=== PATIENT | male | born 1940 ===

== ENCOUNTER 2018-07-04 11:21 | Inpatient (IN) | payer MEDICAID, OTHER ==
[2018-07-04] MEDS ORDERED: Sodium Chloride 0.9% 1,000 ML IV STA ×3 (12:55→14:07)
--- NOTE | 2018-07-04 13:09 | ED PDOC ---
HPI: General Adult Time Seen by Provider: 07/04/18 12:48 Chief Complaint (Nursing): Dental Pain Chief Complaint (Provider): left sided tongue swelling and pain History Per: Patient History/Exam Limitations: no limitations Onset/Duration Of Symptoms: Days (x4 months) Current Symptoms Are (Timing): Still Present Additional Complaint(s): Ian Matson is a 78 year old male, with no significant past medical history, who presents to the emergency department complaining of left sided tongue swelling and pain onset for x4 months. Patient states he had fever and chills at home and pain to both sides of neck. He denies any shortness of breath or difficulty swallowing. No further medical complaints. PMD: None provided. Past Medical History Reviewed: Historical Data, Nursing Documentation, Vital Signs Vital Signs: Last Vital Signs Temp 99.6 F 07/04/18 12:22 Pulse 78 07/04/18 12:22 Resp 18 07/04/18 12:22 BP 131/88 07/04/18 12:22 Pulse Ox 98 07/04/18 12:22 - Medical History PMH: No Chronic Diseases - Surgical History Surgical History: No Surg Hx - Family History Family History: States: Unknown Family Hx - Social History Alcohol: None Drugs: Denies - Home Medications Home Medications: Ambulatory Orders Medication Instructions Recorded No Known Home Med 07/04/18 - Allergies Allergies/Adverse Reactions: Allergies Allergy/AdvReac Type Severity Reaction Status Date / Time No Known Allergies Allergy Verified 07/04/18 12:21 Review of Systems ROS Statement: Except As Marked, All Systems Reviewed And Found Negative Constitutional: Positive for: Fever, Chills ENT: Positive for: Other (left sided tongue swelling and pain). Negative for: Throat Swelling (difficulty swallowing) Respiratory: Negative for: Shortness of Breath Musculoskeletal: Positive for: Neck Pain (both sides) Physical Exam - Reviewed Nursing Documentation Reviewed: Yes Vital Signs Reviewed: Yes - Physical Exam Appears: Positive for: No Acute Distress Head Exam: Positive for: ATRAUMATIC, NORMAL INSPECTION, NORMOCEPHALIC Skin: Positive for: Normal Color, Warm, Dry Eye Exam: Positive for: Normal appearance, EOMI, PERRL ENT: Positive for: Other (left side of tongue with a 1cm lesion) Neck: Positive for: Normal (No neck swelling or masses), Painless ROM, Supple Cardiovascular/Chest: Positive for: Regular Rate, Rhythm. Negative for: Murmur Respiratory: Positive for: Normal Breath Sounds. Negative for: Respiratory Distress, Other (stridor) Gastrointestinal/Abdominal: Positive for: Normal Exam, Soft. Negative for: Tenderness, Guarding, Rebound Back: Positive for: Normal Inspection. Negative for: L CVA Tenderness, R CVA Tenderness, Vertebral Tenderness Extremity: Positive for: Normal ROM (upper and lower extremities). Negative for: Deformity, Swelling Neurologic/Psych: Positive for: Alert, Oriented - Laboratory Results Result Diagrams: 07/04/18 13:10 07/04/18 13:10 - ECG O2 Sat by Pulse Oximetry: 98 (RA) Pulse Ox Interpretation: Normal - Progress Re-evaluation Time: 15:00 Condition: Re-examined - Critical Care Total Time (In Min): 30 Documented Critical Care: Time excludes all time spent performint seperately billable procedures Medical Decision Making Medical Decision Making: Time: 12:48 Initial Plan: --VBG Shock Panel --Neck Soft Tissue w/ contrast [CT] --CMP --Urine dipstick --CBC w/ differential --Sodium Chloride 1,000 ml IV 100 mls/hr --Toradol 30 mg IVP --Reevaluation Scribe Attestation: Documented by Varun Vega, acting as a scribe for Nikita Blakely MD. Provider Scribe Attestation: All medical record entries made by the Scribe were at my direction and personally dictated by me. I have reviewed the chart and agree that the record accurately reflects my personal performance of the history, physical exam, medical decision making, and the department course for this patient. I have also personally directed, reviewed, and agree with the discharge instructions and disposition. Disposition - Clinical Impression Clinical Impression: UTI (urinary tract infection), Sepsis - Patient ED Disposition Is Patient to be Admitted: Yes - Disposition Disposition Time: 15:00 Condition: FAIR Forms: [employer]ensor (Wallisian) - Pt Status Changed To: Hospital Disposition Of: Inpatient - Admit Certification Admit to Inpatient:: After my assessment, the patient will require hospitalization for at least two midnights. This is because of the severity of symptoms shown, intensity of services needed, and/or the medical risk in this patient being treated as an outpatient. - POA Present On Arrival: None
[2018-07-04 13:26] LABS: VENOUS BLOOD GAS PCO2 47 mmHg (40-60); VENOUS BLOOD GAS PO2 11 mm/Hg (30-55); VENOUS BLOOD PH 7.38 (7.32-7.43)
[2018-07-04 14:00] LABS: BASO # 0.1 K/uL (0.0-0.2); BASO % 0.2 % (0.0-2.0); HEMOGLOBIN 11.1 g/dL (12.0-18.0); LYMPH # 1.2 K/uL (1.0-4.3); LYMPH % 4.1 % (20.0-40.0); MEAN CORPUSCULAR HEMOGLOBIN 30.5 pg (27.0-31.0); MEAN CORPUSCULAR HGB CONC 31.8 g/dL (33.0-37.0); MEAN PLATELET VOLUME 7.4 fl (7.2-11.7); MONO # 2.9 K/uL (0.0-0.8); MONO % 10.1 % (0.0-10.0); NEUT # 24.4 K/uL (1.8-7.0); NEUT % 85.6 % (50.0-75.0); PLATELET COUNT 224 K/uL (130-400); RBC 3.65 Mil/uL (4.40-5.90); RED CELL DISTRIBUTION WIDTH 14.1 % (11.5-14.5); WHITE BLOOD COUNT 28.5 K/uL (4.8-10.8)
[2018-07-04] MEDS ORDERED: Piperacillin/Tazobact 3.375 GM in Sodium Chloride 0.9% 100 ML IVPB STA (14:08)
[2018-07-04 14:09] LABS: ALB/GLOB RATIO 1.1 (1.0-2.1); ALT/SGPT 32 U/L (21-72); AST/SGOT 38 U/L (17-59); BLOOD UREA NITROGEN 27 mg/dl (9-20); CALCIUM 9.1 mg/dL (8.4-10.2); GFR NON-AFRICAN AMERICAN 58
[2018-07-04 14:25] LABS: BANDS 3 % (0-2); HYPOCHROMIC SLIGHT; LYMPHOCYTE 4 % (20-50); MONOCYTE 8 % (0-10); NEUTROPHIL 85 % (42-75); PLATELET CLUMPS PRESENT; PLATELET ESTIMATE NORMAL (NORMAL); TOTAL CELLS COUNTED 100
--- NOTE | 2018-07-04 14:40 | RAD ---
Date of service: 07/04/2018 HISTORY: Cough. COMPARISON: No prior. FINDINGS: LUNGS: No active pulmonary disease. PLEURA: No significant pleural effusion identified, no pneumothorax apparent. CARDIOVASCULAR: No atherosclerotic calcification present Normal. OSSEOUS STRUCTURES: No significant abnormalities. VISUALIZED UPPER ABDOMEN: Normal. OTHER FINDINGS: None. IMPRESSION: No active disease.
[2018-07-04] MEDS ORDERED: Piperacillin/Tazobact 3.375 gm Inj IVPB ONE (14:46)
[2018-07-04 14:55] LABS: SQUAMOUS EPITHIAL < 1 /hpf (0-5); URINE BACTERIA RARE (<OCC); URINE BILIRUBIN NEGATIVE (NEGATIVE); URINE BLOOD SMALL (NEGATIVE); URINE CLARITY CLOUDY (Clear); URINE COLOR AMBER (YELLOW); URINE GLUCOSE (UA) NEG (Normal); URINE LEUKOCYTE ESTERASE MOD Leu/uL (Negative); URINE PROTEIN 100 mg/dL (NEGATIVE); URINE UROBILINOGEN 0.2-1.0 mg/dL (0.2-1.0)
[2018-07-04] MEDS ORDERED: Sodium Chloride 0.9% 50 ML IV ONE (15:24)
[2018-07-04] MEDS ORDERED: Iohexol 300 100 ML IJ ONE (15:24)
--- NOTE | 2018-07-04 16:08 | CT ---
Date of service: 07/04/2018 PROCEDURE: CT NECK WITH CONTRAST HISTORY: tongue mass COMPARISON: None available. TECHNIQUE: CT of the neck with intravenous contrast. Coronal and sagittal reformats generated. Intravenous contrast dose: Omnipaque 300, 95 cc Radiation dose: Total exam DLP = 234.63 mGy-cm. This CT exam was performed using one or more of the following dose reduction techniques: Automated exposure control, adjustment of the mA and/or kV according to patient size, and/or use of iterative reconstruction technique. FINDINGS: Evaluation of the suprahyoid neck reveals heterogeneous enhancement at the anterior tongue bilaterally, measuring 4.4 x 1.8 cm (transverse by anteroposterior dimensions) suspicious for malignancy though infectious/inflammatory etiology is not completely excluded. Additional suspicious findings are comprised of lymph nodes with lucent core suspicious for necrosis at right submandibular trait triangle lymph node measure 1.9 x 1.4 cm, and anterior left submandibular triangle lymph node measuring 1.2 x 0.7 cm an additional lymph node right level 2A measuring 1.1 x 0.9 cm. There is some heterogeneous enhancement at the tongue base seen primarily in the transaxial images, less apparent in the sagittal reconstruction. MRI of the neck with without contrast can be utilized for greater characterization of the tongue. No additional suspicious lymph nodes appreciated above or below the hyoid bone in the neck. The pharynx, glottis and larynx appear grossly nonfocal including the vocal cords. Visualized upper trachea is unremarkable as well. GLANDS: Parotid and submandibular glands unremarkable. Normal size thyroid gland, without nodule. CERVICAL SPINE: No fracture or focal lesion. VASCULAR STRUCTURES: Unremarkable. 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 Mild lymphadenopathy at the right greater than left suprahyoid neck may indicate the same given suspicion of necrosis within the cores. Heterogeneous density at the posterior tongue/tongue base may be artifactual in the transaxial projection alone. Follow-up MRI with without contrast can better characterize the tongue. Otherwise PET-CT may be helpful. Overall pattern is suspicious for anterior tongue malignancy. 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
--- NOTE | 2018-07-04 16:41 | CP.PCM.HP ---
<Isaiah Banegas - Last Filed: 07/04/18 17:00> History of Present Illness - History of Present Illness History of Present Illness: CC: Mouth/Tongue pain HPI: Pt is a 78 y/o male with no known medical problems who presented to [facility] Ed with complaints of worsening tongue and mouth pain for the past 4 months. Associated symptoms include dysphagia, 14lb weight, loss (in 1 month), and fatigue. IN the last 4 days, he reports having fever and chills but denies n/v, abdominal pain, flank pain, diarrhea, dysuria, headache, neck pain, stiffness, and back pain. He states that he was seen and evaluated at [facility] ED 2 days ago and was told he had a mass on his tongue which he needed a biopsy for to rule out malignancy. However, he did not make appointment at the [facility] oncology center since he had no insurance. He denies cp, sob, cough, le edema. 5 point ROS negative unless otherwise stated in HPI PMHX: denies PSurgHx: wrist fx repair after fall Medications: denies NKDA Family Hx: daughter- HTN Social: Lives with daughter, 45 pack year smoking history (quit 4 years ago), drank heavily in the past but drinks only socially now ED Course: Vitals: T 104F, BP 100/52, HR 85, O2 sat 97% on rm air CBC: 28.5>11.1/35<224 N85, L4.1 M10.1 Bands 3 Lactate 4.4 CMP: 134/4.01/9425/1.2 AST/ALT 38/32 UA: Positive Nitrate, RBC 9H, 20 WBC Soft Tissue Neck CT: 4.4 x 1.8cm mass on anterior tongue w/ mild lymp hadenopathy..findings suspicious for anterior tongue malignancy Interventions: Bcx (2) and Ucx sent Acetaminophen 650mg po x1 Toradol 30mg IVP x1 NS 250ml bolus x2 NS 1L at 100cc/hr Zosyn 3.375 IV x1 Present on Admission - Present on Admission Any Indicators Present on Admission: No Past Patient History - Past Social History Alcohol: None Drugs: Denies - PSYCHIATRIC Hx Substance Use: No Meds Allergies/Adverse Reactions: Allergies Allergy/AdvReac Type Severity Reaction Status Date / Time No Known Allergies Allergy Verified 07/04/18 12:21 Physical Exam - Constitutional Appears: No Acute Distress - Head Exam Head Exam: NORMAL INSPECTION - Eye Exam Eye Exam: Normal appearance, PERRL - ENT Exam ENT Exam: Mucous Membranes Moist Additional comments: Sublingual mass ~1cm appreciable on right side. Tongue Full ROM, non tender, no discharge. Mucosa normal no exudates. Uvula midline. no lymphadenopathy - Neck Exam Neck exam: Positive for: Full Rom. Negative for: Lymphadenopathy, Meningismus, Tenderness - Respiratory Exam Respiratory Exam: Clear to Auscultation Bilateral. absent: Accessory Muscle Use, Rales, Wheezes - Cardiovascular Exam Cardiovascular Exam: REGULAR RHYTHM, +S1, +S2, Systolic Murmur - GI/Abdominal Exam GI & Abdominal Exam: Normal Bowel Sounds, Soft. absent: Tenderness - Extremities Exam Extremities exam: Positive for: normal capillary refill, normal inspection, pedal pulses present. Negative for: pedal edema - Back Exam Back exam: absent: CVA tenderness (L), CVA tenderness (R) - Neurological Exam Neurological exam: Alert, Oriented x3 - Psychiatric Exam Psychiatric exam: Anxious, Normal Mood - Skin Skin Exam: Normal Color Results - Vital Signs Recent Vital Signs: Last Vital Signs Temp 99.2 F 07/04/18 15:07 Pulse 85 07/04/18 15:07 Resp 18 07/04/18 15:07 BP 100/52 L 07/04/18 15:07 Pulse Ox 97 07/04/18 15:07 - Labs Result Diagrams: 07/04/18 13:10 07/04/18 13:10 Labs: Laboratory Results - last 24 hr 07/04/18 07/04/18 07/04/18 13:10 13:10 13:18 WBC 28.5 H RBC 3.65 L Hgb 11.1 L Hct 35.0 MCV 96.0 H MCH 30.5 MCHC 31.8 L RDW 14.1 Plt Count 224 MPV 7.4 Neut % (Auto) 85.6 H Lymph % (Auto) 4.1 L [place] % (Auto) 10.1 H Eos % (Auto) 0.0 Baso % (Auto) 0.2 Neut # (Auto) 24.4 H Lymph # (Auto) 1.2 [place] # (Auto) 2.9 H Eos # (Auto) 0.0 Baso # (Auto) 0.1 Neutrophils % (Manual) 85 H Band Neutrophils % 3 H Lymphocytes % (Manual) 4 L Monocytes % (Manual) 8 Platelet Estimate Normal Plt Clumps, EDTA Present Hypochromasia (manual) Slight pO2 11 L VBG pH 7.38 VBG pCO2 47 VBG HCO3 24.1 VBG Total CO2 29.2 H VBG O2 Sat (Calc) 14.4 L VBG Base Excess 2.0 VBG Potassium 4.7 Glucose 111 H Lactate 4.4 H* FiO2 21.0 Blood Gas Comments Lac=4.4 Crit Value Called To kalani Phillips Crit Value Called By 22 Crit Value Read Back Y Blood Gas Notified Time 1325 Sodium 134 131.0 L Potassium 4.6 Chloride 94 L 94.0 L Carbon Dioxide 25 Anion Gap 20 BUN 27 H Creatinine 1.2 Est GFR ( Amer) > 60 Est GFR (Non-Af Amer) 58 Random Glucose 99 Calcium 9.1 Total Bilirubin 0.9 AST 38 ALT 32 Alkaline Phosphatase 118 Total Protein 7.4 Albumin 4.0 Globulin 3.5 Albumin/Globulin Ratio 1.1 Venous Blood Potassium 4.7 Urine Color Urine Clarity Urine pH Ur Specific [place] Urine Protein Urine Glucose (UA) Urine Ketones Urine Blood Urine Nitrate Urine Bilirubin Urine Urobilinogen Ur Leukocyte Esterase Urine RBC (Auto) Urine Microscopic WBC Ur Squamous Epith Cells Urine Bacteria 07/04/18 14:32 WBC RBC Hgb Hct MCV MCH MCHC RDW Plt Count MPV Neut % (Auto) Lymph % (Auto) [place] % (Auto) Eos % (Auto) Baso % (Auto) Neut # (Auto) Lymph # (Auto) [place] # (Auto) Eos # (Auto) Baso # (Auto) Neutrophils % (Manual) Band Neutrophils % Lymphocytes % (Manual) Monocytes % (Manual) Platelet Estimate Plt Clumps, EDTA Hypochromasia (manual) pO2 VBG pH VBG pCO2 VBG HCO3 VBG Total CO2 VBG O2 Sat (Calc) VBG Base Excess VBG Potassium Glucose Lactate FiO2 Blood Gas Comments Crit Value Called To Crit Value Called By Crit Value Read Back Blood Gas Notified Time Sodium Potassium Chloride Carbon Dioxide Anion Gap BUN Creatinine Est GFR ( Amer) Est GFR (Non-Af Amer) Random Glucose Calcium Total Bilirubin AST ALT Alkaline Phosphatase Total Protein Albumin Globulin Albumin/Globulin Ratio Venous Blood Potassium Urine Color Sirisha Urine Clarity Cloudy Urine pH 7.0 Ur Specific [place] 1.016 Urine Protein 100 Urine Glucose (UA) Neg Urine Ketones Negative Urine Blood Small Urine Nitrate Positive H Urine Bilirubin Negative Urine Urobilinogen 0.2-1.0 Ur Leukocyte Esterase Mod Urine RBC (Auto) 9 H Urine Microscopic WBC 20 H Ur Squamous Epith Cells < 1 Urine Bacteria Rare Assessment & Plan - Assessment and Plan (Free Text) Assessment: Pt is a 78 y/o male with no known medical problems admitted to [facility] for Urosepsis. 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 Sepsis -Febrile 104F, WBC 28, Bands 3, Lactic Acid 4.4 -Likely 2/2 to UTI given U/A + Nitrates and WBC -Cxray no acute findings -Fluid resuscitation: 250cc NS bolus x2 -S/P Zosyn x1 -C/W Rocephin 1gm daily -F/U Bcx and Ucx -Tylenol prn for fevers -F/U CBC and Lactic Acid Tongue Mass -No acute intervention required; pt needs f/u with ENT for biopsy and subsequen tly Oncology -Discuss CT findings with patient and concern for malignancy. Pt is aware and was told in previous institution. -Currently has no plans in place to f/u with Onclogist given his insurance status -Will provide information for [facility] prior to discharge Dysphagia -Dysphagia diet -Swallow screen and evaluation Stable Full Code <Nando Hernández D - Last Filed: 07/04/18 19:14> Results - Vital Signs Recent Vital Signs: Last Vital Signs Temp 99.1 F 07/04/18 19:05 Pulse 78 07/04/18 19:05 Resp 18 07/04/18 19:05 BP 95/48 L 07/04/18 19:05 Pulse Ox 98 07/04/18 19:05 - Labs Result Diagrams: 07/04/18 13:10 07/04/18 13:10 Labs: Laboratory Results - last 24 hr 07/04/18 07/04/18 07/04/18 13:10 13:10 13:18 WBC 28.5 H RBC 3.65 L Hgb 11.1 L Hct 35.0 MCV 96.0 H MCH 30.5 MCHC 31.8 L RDW 14.1 Plt Count 224 MPV 7.4 Neut % (Auto) 85.6 H Lymph % (Auto) 4.1 L [place] % (Auto) 10.1 H Eos % (Auto) 0.0 Baso % (Auto) 0.2 Neut # (Auto) 24.4 H Lymph # (Auto) 1.2 [place] # (Auto) 2.9 H Eos # (Auto) 0.0 Baso # (Auto) 0.1 Neutrophils % (Manual) 85 H Band Neutrophils % 3 H Lymphocytes % (Manual) 4 L Monocytes % (Manual) 8 Platelet Estimate Normal Plt Clumps, EDTA Present Hypochromasia (manual) Slight pO2 11 L VBG pH 7.38 VBG pCO2 47 VBG HCO3 24.1 VBG Total CO2 29.2 H VBG O2 Sat (Calc) 14.4 L VBG Base Excess 2.0 VBG Potassium 4.7 Glucose 111 H Lactate 4.4 H* FiO2 21.0 Blood Gas Comments Lac=4.4 Crit Value Called To kalani Phillips Crit Value Called By 22 Crit Value Read Back Y Blood Gas Notified Time 1325 Sodium 134 131.0 L Potassium 4.6 Chloride 94 L 94.0 L Carbon Dioxide 25 Anion Gap 20 BUN 27 H Creatinine 1.2 Est GFR ( Amer) > 60 Est GFR (Non-Af Amer) 58 Random Glucose 99 Calcium 9.1 Total Bilirubin 0.9 AST 38 ALT 32 Alkaline Phosphatase 118 Total Protein 7.4 Albumin 4.0 Globulin 3.5 Albumin/Globulin Ratio 1.1 Venous Blood Potassium 4.7 Urine Color Urine Clarity Urine pH Ur Specific [place] Urine Protein Urine Glucose (UA) Urine Ketones Urine Blood Urine Nitrate Urine Bilirubin Urine Urobilinogen Ur Leukocyte Esterase Urine RBC (Auto) Urine Microscopic WBC Ur Squamous Epith Cells Urine Bacteria 07/04/18 07/04/18 14:32 16:30 WBC RBC Hgb Hct MCV MCH MCHC RDW Plt Count MPV Neut % (Auto) Lymph % (Auto) [place] % (Auto) Eos % (Auto) Baso % (Auto) Neut # (Auto) Lymph # (Auto) [place] # (Auto) Eos # (Auto) Baso # (Auto) Neutrophils % (Manual) Band Neutrophils % Lymphocytes % (Manual) Monocytes % (Manual) Platelet Estimate Plt Clumps, EDTA Hypochromasia (manual) pO2 35 VBG pH 7.45 H VBG pCO2 36 L VBG HCO3 25.2 VBG Total CO2 26.1 VBG O2 Sat (Calc) 78.0 H VBG Base Excess 1.3 VBG Potassium 4.4 Glucose 126 H Lactate 1.2 FiO2 21.0 Blood Gas Comments Crit Value Called To Crit Value Called By Crit Value Read Back Blood Gas Notified Time Sodium 130.0 L Potassium Chloride 101.0 Carbon Dioxide Anion Gap BUN Creatinine Est GFR ( Amer) Est GFR (Non-Af Amer) Random Glucose Calcium Total Bilirubin AST ALT Alkaline Phosphatase Total Protein Albumin Globulin Albumin/Globulin Ratio Venous Blood Potassium 4.4 Urine Color Sirisha Urine Clarity Cloudy Urine pH 7.0 Ur Specific [place] 1.016 Urine Protein 100 Urine Glucose (UA) Neg Urine Ketones Negative Urine Blood Small Urine Nitrate Positive H Urine Bilirubin Negative Urine Urobilinogen 0.2-1.0 Ur Leukocyte Esterase Mod Urine RBC (Auto) 9 H Urine Microscopic WBC 20 H Ur Squamous Epith Cells < 1 Urine Bacteria Rare Attending/Attestation - Attestation I have personally seen and examined this patient.: Yes I have fully participated in the care of the patient.: Yes I have reviewed all pertinent clinical information: Yes Notes (Text): 07/04/18 19:12 Patient seen and examined with resident. Case discussed and agreed with assessment and plan of management.
[2018-07-04 16:44] LABS: VENOUS BLOOD GAS BASE EXCESS 1.3 mmol/L (0.0-2.0); VENOUS BLOOD GAS PCO2 36 mmHg (40-60); VENOUS BLOOD GAS PO2 35 mm/Hg (30-55); VENOUS BLOOD PH 7.45 (7.32-7.43)
[2018-07-04] MEDS ORDERED: Vancomycin 1 g Inj ONE (17:25)
[2018-07-04] MEDS: Sodium Chloride 0.9% 1,000 ML IV SCH (18:22)
[2018-07-04] MEDS ORDERED: Influenza Vaccine 60 mcg/0.5 mL SYR (4YR UP) IM ONE (20:38)
[2018-07-04] MEDS: Piperacillin/Tazobact 3.375 GM in Sodium Chloride 0.9% 100 ML IVPB SCH (22:12)
[2018-07-05] MEDS: Sodium Chloride 0.9% 1,000 ML IV SCH ×5 (00:48→21:57)
[2018-07-05] MEDS: Piperacillin/Tazobact 3.375 GM in Sodium Chloride 0.9% 100 ML IVPB SCH ×4 (04:08→21:56)
[2018-07-05 05:39] LABS: BASO % 0.2 % (0.0-2.0); HEMOGLOBIN 8.5 g/dL (12.0-18.0); LYMPH # 0.9 K/uL (1.0-4.3); LYMPH % 4.4 % (20.0-40.0); MEAN CELL VOLUME 93.3 fl (80.0-94.0); MEAN CORPUSCULAR HEMOGLOBIN 30.6 pg (27.0-31.0); MEAN CORPUSCULAR HGB CONC 32.8 g/dL (33.0-37.0); MEAN PLATELET VOLUME 7.6 fl (7.2-11.7); MONO # 2.7 K/uL (0.0-0.8); MONO % 12.9 % (0.0-10.0); NEUT # 17.4 K/uL (1.8-7.0); NEUT % 82.5 % (50.0-75.0); RBC 2.76 Mil/uL (4.40-5.90); RED CELL DISTRIBUTION WIDTH 14.2 % (11.5-14.5); WHITE BLOOD COUNT 21.1 K/uL (4.8-10.8)
[2018-07-05 06:02] LABS: BLOOD UREA NITROGEN 24 mg/dl (9-20); CALCIUM 7.7 mg/dL (8.4-10.2); GFR NON-AFRICAN AMERICAN 53
--- NOTE | 2018-07-05 07:51 | CP.PCM.PN ---
<Isaiah Banegas - Last Filed: 07/05/18 10:40> Subjective - Date & Time of Evaluation Date of Evaluation: 07/05/18 Time of Evaluation: 09:00 - Subjective Subjective: Pt seen and examined this morning. Complains of tongue/mouth pain. Tylenol po given by nurse this morning which relieved. Denies fever/chills, dysuria. Tolerating dysphagia diet well. Objective - Vital Signs/Intake and Output Vital Signs (last 24 hours): Temp Pulse Resp BP Pulse Ox 99.5 F 68 18 98/48 L 97 07/05/18 04:44 07/05/18 04:44 07/05/18 04:44 07/05/18 04:44 07/05/18 04:44 - Medications Medications: Current Medications Acetaminophen (Tylenol 325mg Tab) 650 mg PO Q6 PRN PRN Reason: Fever >100.4 F Acetaminophen (Tylenol 325mg Tab) 650 mg PO Q6 PRN PRN Reason: Pain, Mild (1-3) Last Admin: 07/05/18 00:47 Dose: 650 mg Enoxaparin Sodium (Lovenox) 40 mg SC DAILY NIKOLAS; Protocol Sodium Chloride (Sodium Chloride 0.9%) 1,000 mls @ 200 mls/hr IV .Q5H NIKOLAS Stop: 07/05/18 18:18 Last Admin: 07/05/18 05:48 Dose: 200 mls/hr Vancomycin HCl 1 gm/ Sodium (Chloride) 250 mls @ 125 mls/hr IVPB Q12H NIKOLAS; Protocol Last Admin: 07/04/18 20:13 Dose: Not Given Piperacillin Sod/Tazobactam (Sod 3.375 gm/ Sodium Chloride) 100 mls @ 100 mls/hr IVPB Q6 NIKOLAS; Protocol Last Admin: 07/05/18 04:08 Dose: 100 mls/hr Sodium Chloride (Sodium Chloride 0.9%) 500 mls @ 500 mls/hr IV .Q1H ONE Stop: 07/05/18 08:49 Pantoprazole Sodium (Protonix Ec Tab) 40 mg PO DAILY NIKOLAS - Labs Labs: 07/05/18 04:25 07/05/18 04:25 - Constitutional Appears: No Acute Distress - Eye Exam Eye Exam: Normal appearance - ENT Exam ENT Exam: Mucous Membranes Moist Additional comments: Sublingual mass ~1cm appreciable on right side. Tongue Full ROM, non tender, no discharge. Mucosa normal no exudates. Uvula midline. + moderately sized anterior cervical lymphadenopathy - Neck Exam Neck Exam: Lymphadenopathy - Respiratory Exam Respiratory Exam: Clear to Ausculation Bilateral. absent: Rales, Wheezes Assessment and Plan - Assessment and Plan (Free Text) Assessment: Pt is a 78 y/o male with no known medical problems admitted to [facility] for Urosepsis w/ elevated lactic acid 4.4. 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 Currently receiving IV Vanco and Zosyn, pending Ucx. Sepsis -Improved, Afebrile overnight, WBC 21.1, Lactic Acid 1.2 -Febrile 104F, WBC 28, Bands 3, Lactic Acid 4.4 -Likely 2/2 to UTI given U/A + Nitrates and WBC -Cxray no acute findings -Fluid resuscitation: 250cc NS bolus x2 -C/W Vancomysin and Zosyn -F/U Bcx and Ucx -Tylenol prn for fevers Tongue Mass -No acute intervention required; pt needs f/u with ENT for biopsy and s ubsequently Oncology -Discuss CT findings with patient and concern for malignancy. Pt is aware and w as told in previous institution. -Pt strongly encouraged to f/u with ENT and Oncology for biopsy to rule out malignancy Dysphagia -Dysphagia diet -Swallow screen and evaluation pending Stable Full Code <Comfort Caputo - Last Filed: 07/05/18 17:19> Objective - Vital Signs/Intake and Output Vital Signs (last 24 hours): Temp Pulse Resp BP Pulse Ox 98.2 F 78 18 125/70 95 07/05/18 16:27 07/05/18 16:27 07/05/18 16:27 07/05/18 16:27 07/05/18 16:27 - Medications Medications: Current Medications Acetaminophen (Tylenol 325mg Tab) 650 mg PO Q6 PRN PRN Reason: Fever >100.4 F Acetaminophen (Tylenol 325mg Tab) 650 mg PO Q6 PRN PRN Reason: Pain, severe (8-10) Enoxaparin Sodium (Lovenox) 40 mg SC DAILY NIKOLAS; Protocol Last Admin: 07/05/18 09:35 Dose: 40 mg Vancomycin HCl 1 gm/ Sodium (Chloride) 250 mls @ 125 mls/hr IVPB Q12H NIKOLAS; Protocol Last Admin: 07/05/18 09:31 Dose: 125 mls/hr Piperacillin Sod/Tazobactam (Sod 3.375 gm/ Sodium Chloride) 100 mls @ 100 mls/hr IVPB Q6 NIKOLAS; Protocol Last Admin: 07/05/18 16:56 Dose: 100 mls/hr Sodium Chloride (Sodium Chloride 0.9%) 1,000 mls @ 125 mls/hr IV .Q8H NIKOLAS Stop: 07/06/18 12:19 Last Admin: 07/05/18 14:45 Dose: 125 mls/hr Pantoprazole Sodium (Protonix Ec Tab) 40 mg PO DAILY NIKOLAS Last Admin: 07/05/18 09:30 Dose: 40 mg - Labs Labs: 07/05/18 04:25 07/05/18 04:25 Attending/Attestation - Attestation I have personally seen and examined this patient.: Yes I have fully participated in the care of the patient.: Yes I have reviewed all pertinent clinical information, including history, physical exam and plan: Yes Notes (Text): Sepsis ? due to UTI with Gram Negative Rods Bacteremia ( POA) - cont IV Zosyn and Vanco - IVF hydration - ID consult - Echo to eval for vegetation -
[2018-07-05] MEDS: Pantoprazole 40 mg EC Tab PO SCH (09:30)
[2018-07-05] MEDS: Sodium Chloride 0.9% 500 ML IV ONE ×2 (09:32→10:00)
[2018-07-05] MEDS: Enoxaparin 40 mg Syringe SC SCH (09:35)
--- NOTE | 2018-07-05 10:25 | RAD ---
Date of service: 07/05/2018 PROCEDURE: CHEST RADIOGRAPH, 1 VIEW HISTORY: SOB COMPARISON: 07/04/2018 FINDINGS: LUNGS: Minimal subsegmental atelectasis in both lower lobes. No acute infiltrate. PLEURA: Minimal blunting of the right costophrenic angle may reflect very small pleural effusion. No pneumothorax. CARDIOVASCULAR: No aortic atherosclerotic calcification present. Normal. OSSEOUS STRUCTURES: Bilateral chronic rotator cuff insufficiency with superior subluxation of the humeral head VISUALIZED UPPER ABDOMEN: Normal. OTHER FINDINGS: None. IMPRESSION: Bibasilar subsegmental atelectasis. Possible very small right pleural effusion.
[2018-07-05 18:08] LABS: ABG ALLEN TEST YES; ARTERIAL BLOOD GAS HCO3 23.2 mmol/L (21-28); ARTERIAL BLOOD GAS HEMOGLOBIN 13.2 g/dL (11.7-17.4); ARTERIAL BLOOD GAS O2 CAPACITY 17.9 mL/dL (16-24); ARTERIAL BLOOD GAS O2 CONTENT 17.2 ML/dL (15-23); ARTERIAL BLOOD GAS O2 SAT 95.9 % (95-98); ARTERIAL BLOOD GAS PCO2 30 mm/Hg (35-45); ARTERIAL BLOOD GAS PH 7.45 (7.35-7.45); ARTERIAL BLOOD GAS PO2 65 mm/Hg (80-100); ARTERIAL BLOOD GAS TCO2 21.8 mmol/L (22-28)
--- NOTE | 2018-07-05 19:31 | CARD ---
APPROVED REPORT Date of service: 07/05/2018 EXAM: Two-dimensional and M-mode echocardiogram with Doppler and color Doppler. Other Information Quality : GoodRhythm : NSR INDICATION Infection:Subacute bacterial endocarditis 2D DIMENSIONS IVSd1.00 (0.7-1.1cm)LVDd4.38 (3.9-5.9cm) PWd0.68 (0.7-1.1cm)IVSs1.09 (0.8-1.2cm) LVDs3.22 (2.5-4.0cm)FS (%) 26.5 % PWs0.71 (0.8-1.2cm) M-Mode DIMENSIONS Left Atrium (MM)3.53 (2.5-4.0cm)Aortic Root3.41 (2.2-3.7cm) Aortic Cusp Exc.2.00 (1.5-2.0cm) Aortic Valve AoV Peak Xmklihjj177.4cm/sAoV VTI22.9cmAO Peak GR.7mmHg LVOT Peak Xztqhaue11.6cm/sLVOT VTI17.65cmAO Mean GR.3mmHg Mitral Valve MV E Urmpvctd50.2cm/sMV DECEL [id number] A Zrphukbd99.0cm/s MV XNM00zjK/A ratio1.1MVA (PHT)4.02cm2 TDI E/Lateral E'0.0E/Medial E'0.0 Tricuspid Valve TR Peak Azmjeeth141is/sRAP [id number] Peak Gr.35mmHg [id number] LEFT VENTRICLE The left ventricle is normal size. There is normal left ventricular wall thickness. The left ventricular systolic function is normal. The estimated ejection fraction is 55-60% No regional wall motion abnormalities noted.. Transmitral Doppler flow pattern is Grade II-pseudonormal filling dynamics. No left ventricle thrombus noted on this study. There is no ventricular septal defect visualized. There is no left ventricular aneurysm. There is no mass noted in the left ventricle. RIGHT VENTRICLE The right ventricle is normal size. There is normal right ventricular wall thickness. The right ventricular systolic function is normal. ATRIA The left atrium is mildly dilated. The right atrium size is normal. The interatrial septum is intact with no evidence for an atrial septal defect. AORTIC VALVE The aortic valve is normal in structure. No aortic regurgitation is present. There is no aortic valvular stenosis. There is no aortic valvular vegetation. MITRAL VALVE The mitral valve is normal in structure. There is no evidence of mitral valve prolapse. There is no mitral valve stenosis. There is trace mitral valve regurgitation noted. TRICUSPID VALVE The tricuspid valve is normal in structure. There is mild tricuspid valve regurgitation noted. RVSP is calculated at 44 mm Hg. There is no tricuspid valve prolapse or vegetation. There is no tricuspid valve stenosis. PULMONIC VALVE The pulmonary valve is normal in structure. There is no pulmonic valvular regurgitation. There is no pulmonic valvular stenosis. GREAT VESSELS The aortic root is normal in size. The ascending aorta is normal in size. The pulmonary artery is normal. The IVC is normal in size and collapses >50% with inspiration. PERICARDIAL EFFUSION There is no pericardial effusion. There is no pleural effusion. <Conclusion> The estimated ejection fraction is 55-60% Transmitral Doppler flow pattern is Grade II-pseudonormal filling dynamics. The left atrium is mildly dilated. There is trace mitral valve regurgitation noted. There is mild tricuspid valve regurgitation noted. RVSP is calculated at 44 mm Hg. No valvular vegetations were found on this study. Correlate clinically.
[2018-07-06] MEDS ORDERED: Albuterol-Ipratrop 3 mg / 0.5 (3 ml) UD INH STA ×3 (00:40→03:47)
[2018-07-06] MEDS: Piperacillin/Tazobact 3.375 GM in Sodium Chloride 0.9% 100 ML IVPB SCH ×2 (03:50→09:04)
[2018-07-06 05:47] LABS: BASO # 0.1 K/uL (0.0-0.2); BASO % 0.4 % (0.0-2.0); EOS % 0.1 % (0.0-4.0); HEMOGLOBIN 9.2 g/dL (12.0-18.0); LYMPH # 1.4 K/uL (1.0-4.3); MEAN CELL VOLUME 93.5 fl (80.0-94.0); MEAN CORPUSCULAR HEMOGLOBIN 30.5 pg (27.0-31.0); MEAN CORPUSCULAR HGB CONC 32.6 g/dL (33.0-37.0); MEAN PLATELET VOLUME 7.7 fl (7.2-11.7); MONO % 11.3 % (0.0-10.0); NEUT # 14.3 K/uL (1.8-7.0); NEUT % 80.2 % (50.0-75.0); NRBC % 0.1 % (0.0-0.0); RBC 3.04 Mil/uL (4.40-5.90); RED CELL DISTRIBUTION WIDTH 14.3 % (11.5-14.5); WHITE BLOOD COUNT 17.8 K/uL (4.8-10.8)
[2018-07-06 06:12] LABS: BLOOD UREA NITROGEN 17 mg/dl (9-20); GFR NON-AFRICAN AMERICAN 58
--- NOTE | 2018-07-06 08:13 | CP.PCM.PN ---
<Isaiah Banegas - Last Filed: 07/06/18 11:39> Subjective - Date & Time of Evaluation Date of Evaluation: 07/06/18 Time of Evaluation: 08:00 - Subjective Subjective: Overnight events noted. Pt noted to be dyspnic with desaturation to low 90's. O2 sat imrpoved after O2 nasal cannula 2L given. Pt received 20mg po lasix and nebulizer treatment which improved his symptoms. Pt was seen and examined this morning at the bedside with Dr. Caputo. Reports that his breathing is improved. Denies chest pain. Microbiology lab called this am alerting medicine team that patient's BCx is growing ESBL E.Coli, contact precaution placed, and 1 stat dose of Meropenem given. Dr. Grant made aware and approved antibiotic. Objective - Vital Signs/Intake and Output Vital Signs (last 24 hours): Temp Pulse Resp BP Pulse Ox 98.3 F 77 18 100/67 97 07/06/18 08:03 07/06/18 08:03 07/06/18 08:03 07/06/18 08:03 07/06/18 08:03 Intake and Output: 07/06/18 07/06/18 06:59 18:59 Intake Total 2730 Balance 2730 - Medications Medications: Current Medications Acetaminophen (Tylenol 325mg Tab) 650 mg PO Q6 PRN PRN Reason: Fever >100.4 F Acetaminophen (Tylenol 325mg Tab) 650 mg PO Q6 PRN PRN Reason: Pain, severe (8-10) Last Admin: 07/05/18 17:37 Dose: 650 mg Albuterol/Ipratropium (Duoneb 3 Mg/0.5 Mg (3 Ml) Ud) 3 ml INH RQID NIKOLAS Enoxaparin Sodium (Lovenox) 40 mg SC DAILY NIKOLAS; Protocol Last Admin: 07/05/18 09:35 Dose: 40 mg Vancomycin HCl 1 gm/ Sodium (Chloride) 250 mls @ 125 mls/hr IVPB Q12H NIKOLAS; Protocol Last Admin: 07/05/18 19:48 Dose: 125 mls/hr Piperacillin Sod/Tazobactam (Sod 3.375 gm/ Sodium Chloride) 100 mls @ 100 mls/hr IVPB Q6 NIKOLAS; Protocol Last Admin: 07/06/18 03:50 Dose: 100 mls/hr Sodium Chloride (Sodium Chloride 0.9%) 1,000 mls @ 125 mls/hr IV .Q8H [facility] Stop: 07/06/18 12:19 Last Admin: 07/05/18 21:57 Dose: 125 mls/hr Pantoprazole Sodium (Protonix Ec Tab) 40 mg PO DAILY [facility] Last Admin: 07/05/18 09:30 Dose: 40 mg - Labs Labs: 07/06/18 04:25 07/06/18 04:25 - Constitutional Appears: No Acute Distress, Older Than Stated Age - Head Exam Head Exam: NORMAL INSPECTION - Eye Exam Eye Exam: Normal appearance - ENT Exam ENT Exam: Mucous Membranes Moist - Respiratory Exam Respiratory Exam: Decreased Breath Sounds, Prolonged Expiratory Phase, Wheezes. absent: Accessory Muscle Use, Rales, Rhonchi Additional comments: Hyper barrel chest - Cardiovascular Exam Cardiovascular Exam: REGULAR RHYTHM, +S1, +S2. absent: Murmur - GI/Abdominal Exam GI & Abdominal Exam: Soft, Normal Bowel Sounds. absent: Distended, Tenderness - Extremities Exam Extremities Exam: absent: Calf Tenderness, Pedal Edema - Neurological Exam Neurological Exam: Alert, Awake - Psychiatric Exam Psychiatric exam: Normal Mood - Skin Skin Exam: Normal Color Assessment and Plan - Assessment and Plan (Free Text) Assessment: Pt is a 78 y/o male with no known medical problems admitted to [facility] for Urosepsis w/ elevated lactic acid 4.4. 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 Currently receiving IV Vanco and Zosyn, pending Ucx. Dyspnea on exertion noted on mutliple occasions during admission. Bacteremia -Blood Cx and Ucx: +ESBL E.Coli. -Improved, Afebrile since 07/04, WBC trending down 17 today, Lactic Acid 1.2 -Meropenem 1gm q8 IV started. ID on board, Dr. Grant, approved antibiotic regimen -Vancomycin and Zosyn discontinued -Repeat Blood Cultures ordered; will get picc once negative -Tylenol prn for fevers Dyspnea -Cxray (07/06): no active disease -Likely exertional; exacerbated during PT yesterday -Pt has long smoking hx ([address] reported COPD at lung apices suggesting this is likely a component of obstructive lung disease -Albuterol nebulizer QID started Tongue Mass -No acute intervention required; pt needs f/u with ENT for biopsy and subsequent ly Oncology -Discuss CT findings with patient and concern for malignancy. Pt is aware and was told in previous institution. -Pt strongly encouraged to f/u with ENT and Oncology for biopsy to rule out malignancy Dysphagia -Dysphagia diet -Swallow screen and evaluation: pureed thin liquids -Aspiration precautions DVT ppx -Lovenox 40mg sq PT -recommended subacute rehab vs home with services for gait training Stable Full Code <Comfort Caputo - Last Filed: 07/06/18 16:32> Objective - Vital Signs/Intake and Output Vital Signs (last 24 hours): Temp Pulse Resp BP Pulse Ox 98.3 F 71 18 123/65 99 07/06/18 16:06 07/06/18 16:06 07/06/18 16:06 07/06/18 16:06 07/06/18 16:06 Intake and Output: 07/06/18 07/06/18 06:59 18:59 Intake Total 2730 Balance 2730 - Medications Medications: Current Medications Acetaminophen (Tylenol 325mg Tab) 650 mg PO Q6 PRN PRN Reason: Fever >100.4 F Acetaminophen (Tylenol 325mg Tab) 650 mg PO Q6 PRN PRN Reason: Pain, severe (8-10) Last Admin: 07/06/18 15:42 Dose: 650 mg Albuterol/Ipratropium (Duoneb 3 Mg/0.5 Mg (3 Ml) Ud) 3 ml INH RQID NIKOLAS Last Admin: 07/06/18 15:53 Dose: 3 ml Enoxaparin Sodium (Lovenox) 40 mg SC DAILY NIKOLAS; Protocol Last Admin: 07/06/18 09:02 Dose: 40 mg Meropenem 1 gm/ Sodium (Chloride) 100 mls @ 100 mls/hr IVPB Q8 NIKOLAS; Protocol Last Admin: 07/06/18 13:25 Dose: 100 mls/hr Vancomycin HCl 750 mg/ Sodium (Chloride) 250 mls @ 250 mls/hr IVPB Q12H NIKOLAS; Protocol Last Admin: 07/06/18 14:44 Dose: 250 mls/hr Pantoprazole Sodium (Protonix Ec Tab) 40 mg PO DAILY NIKOLAS Last Admin: 07/06/18 09:02 Dose: 40 mg - Labs Labs: 07/06/18 04:25 07/06/18 04:25 Attending/Attestation - Attestation I have personally seen and examined this patient.: Yes I have fully participated in the care of the patient.: Yes I have reviewed all pertinent clinical information, including history, physical exam and plan: Yes Notes (Text): Sepsis sec to UTI with ESBL E Coli Bacteremia - Dr Grant consulted- started pt on IV Meropenem -ECHO no vegetation COPD mild exacerbation - cont prn Duoneb
[2018-07-06] MEDS: Pantoprazole 40 mg EC Tab PO SCH (09:02)
[2018-07-06] MEDS: Enoxaparin 40 mg Syringe SC SCH (09:02)
[2018-07-06] MEDS ORDERED: Meropenem 1 GM in Sodium Chloride 0.9% 100 ML IVPB ONE (11:15)
--- NOTE | 2018-07-06 11:42 | RAD ---
Date of service: 07/06/2018 HISTORY: dyspnea COMPARISON: 07/05/2018. FINDINGS: LUNGS: Marked progression right lower lobe infiltrate. PLEURA: Pleural effusion on the right inseparable from consolidative change. CARDIOVASCULAR: Atherosclerotic calcifications identified primarily aortic arch. No acute cardiovascular abnormalities. OSSEOUS STRUCTURES: No significant abnormalities. VISUALIZED UPPER ABDOMEN: Normal. OTHER FINDINGS: None. IMPRESSION: Evolving/extensive right lower lobe infiltrate.
--- NOTE | 2018-07-06 12:45 | CP.PCM.CON ---
History of Present Illness - History of Present Illness History of Present Illness: 78 y/o male presented to [facility] ER with complaints of worsening tongue and mouth pain for the past 4 months. Associated symptoms include dysphagia, 14lb weight, loss (in 1 month), and fatigue with recent onset of fever and chills He states that he was seen and evaluated at [facility] ED 2 days ago and was told he had a mass on his tongue which he needed a biopsy for to rule out malignancy. Blood and urine cultures done on admission are positive for ESBL E Coli PMHX: denies PSurgHx: wrist fx Medications: denies NKDA Family Hx: HTN Social: 45 pack year smoking history (quit 4 years ago), ETOH + Review of Systems - Review of Systems All systems: reviewed and no additional remarkable complaints except - Constitutional Constitutional: As Per HPI, Chills, Fever, Weight Loss, Weakness - EENT Eyes: absent: As Per HPI, Blind Spots, Blurred Vision, Change in Vision, Decrea sed Night Vision, Diplopia, Discharge, Dry Eye, Exophthalmos, Floaters, Irritation, Itchy Eyes, Loss of Peripheral Vision, Pain, Photophobia, Requires Corrective Lenses, Sees Flashes, Spots in Vision, Tunnel Vision, Other Visual Disturbances, Loss of Vision, Other Ears: absent: As Per HPI, Decreased Hearing, Ear Discharge, Ear Pain, Tinnitus, Abnormal Hearing, Disequilibrium, Dizziness, Other Nose/Mouth/Throat: As Per HPI, Mouth Lesions - Cardiovascular Cardiovascular: absent: As Per HPI, Acrocyanosis, Chest Pain, Chest Pain at Rest, Chest Pain with Activity, Claudication, Diaphoresis, Dyspnea, Dyspnea on Exertion, Edema, Irregular Heart Rhythm, Pain Radiating to Arm/Neck/Jaw, Leg Edema, Leg Ulcers, Lightheadedness, Orthopnea, Palpitations, Paroxysmal Nocturnal Dyspnea, Pedal Edema, Radiating Pain, Rapid Heart Rate, Slow Heart Rate, Syncope, Other - Respiratory Respiratory: As Per HPI, Cough, Dyspnea - Gastrointestinal Gastrointestinal: As Per HPI - Musculoskeletal Musculoskeletal: absent: As Per HPI, Abnormal Gait, Arthralgias, Atrophy, Back Pain, Deformity, Joint Swelling, Limited Range of Motion, Loss of Height, Muscle Cramps, Muscle Weakness, Myalgias, Neck Pain, Numbness, Radiating Pain into Limb, Stiffness, Tingling, Other - Integumentary Integumentary: absent: As Per HPI, Acne, Alopecia, Bleeding Lesions, Change in Hair, Change in Nails, Change in Pigmentation, Changing Lesions, Dry Skin, Erythema, Furuncle, Hirsutism, Lesions, New Lesions, Non-Healing Lesions, Photosensitivity, Pruritus, Rash, Skin Pain, Skin Ulcer, Sores, Striae, Swelling, Unusual Bruising, Wounds, Jaundice, Other - Neurological Neurological: absent: As Per HPI, Abnormal Gait, Abnormal Hearing, Abnormal Movements, Abnormal Speech, Behavioral Changes, Burning Sensations, Confusion, Convulsions, Disequilibrium, Dizziness, Numbness, Focal Weakness, Frequent Falls, Headaches, Lack of Coordination, Loss of Vision, Memory Loss, Paresthesias, Radicular Pain, Restless Legs, Sensory Deficit, Syncope, Tingling, Tremor, Vertigo, Weakness, Other Visual Disturbances, Other - Endocrine Endocrine: absent: As Per HPI, Change in Body Appearance, Change in Libido, Cold Intolorance, Deepening of Voice, Excessive Sweating, Fatigue, Flushing, Heat Intolorance, Increase in Ring/Shoe/Hat Size, Palpitations, Polydipsia, Polyphagia, Polyuria, Other - Hematologic/Lymphatic Hematologic: As Per HPI Past Patient History - Past Medical History & Family History Past Medical History?: Yes - Past Social History Smoking Status: Former Smoker - CARDIAC Hx Cardiac Disorders: No - PULMONARY Hx Respiratory Disorders: No - NEUROLOGICAL Hx Neurological Disorder: No - HEENT Hx Cataracts: Yes - RENAL Hx Chronic Kidney Disease: No - ENDOCRINE/METABOLIC Hx Endocrine Disorders: No - HEMATOLOGICAL/ONCOLOGICAL Hx Blood Disorders: No Hx AIDS: No Hx Human Immunodeficiency Virus (HIV): No - INTEGUMENTARY Hx Dermatological Problems: No - MUSCULOSKELETAL/RHEUMATOLOGICAL Hx Musculoskeletal Disorders: Yes Hx Falls: Yes Hx Fractures: Yes (left shoulder) - GASTROINTESTINAL Hx Gastrointestinal Disorders: No - GENITOURINARY/GYNECOLOGICAL Hx Genitourinary Disorders: No - PSYCHIATRIC Hx Psychophysiologic Disorder: No Hx Substance Use: No - SURGICAL HISTORY Hx Surgeries: No - ANESTHESIA Hx Anesthesia: No Meds Allergies/Adverse Reactions: Allergies Allergy/AdvReac Type Severity Reaction Status Date / Time No Known Allergies Allergy Verified 07/04/18 12:21 - Medications Medications: Current Medications Acetaminophen (Tylenol 325mg Tab) 650 mg PO Q6 PRN PRN Reason: Fever >100.4 F Acetaminophen (Tylenol 325mg Tab) 650 mg PO Q6 PRN PRN Reason: Pain, severe (8-10) Last Admin: 07/05/18 17:37 Dose: 650 mg Albuterol/Ipratropium (Duoneb 3 Mg/0.5 Mg (3 Ml) Ud) 3 ml INH RQID NIKOLAS Enoxaparin Sodium (Lovenox) 40 mg SC DAILY NIKOLAS; Protocol Last Admin: 07/06/18 09:02 Dose: 40 mg Vancomycin HCl 750 mg/ Sodium (Chloride) 250 mls @ 250 mls/hr IVPB Q12H NIKOLAS; Protocol Meropenem 1 gm/ Sodium (Chloride) 100 mls @ 100 mls/hr IVPB Q8 NIKOLAS; Protocol Pantoprazole Sodium (Protonix Ec Tab) 40 mg PO DAILY NIKOLAS Last Admin: 07/06/18 09:02 Dose: 40 mg Physical Exam - Constitutional Appears: No Acute Distress, Cachectic, Chronically Ill - Head Exam Head Exam: NORMOCEPHALIC - Eye Exam Eye Exam: PERRL - ENT Exam ENT Exam: Mucous Membranes Dry, Normal External Ear Exam, TM's Normal Bilaterally Additional comments: + Oral lesion - Neck Exam Neck exam: Positive for: Full Rom - Respiratory Exam Respiratory Exam: Decreased Breath Sounds, Prolonged Expiratory Phase, Rales, Rhonchi - Cardiovascular Exam Cardiovascular Exam: REGULAR RHYTHM, +S1, +S2 - GI/Abdominal Exam GI & Abdominal Exam: Diminished Bowel Sounds, Distended, Soft - Rectal Exam Rectal Exam: Deferred - Exam Exam: NORMAL INSPECTION - Extremities Exam Extremities exam: Positive for: full ROM, pedal pulses present. Negative for: calf tenderness, joint swelling, normal capillary refill, normal inspection, pedal edema, tenderness - Back Exam Back exam: NORMAL INSPECTION. absent: CVA tenderness (L), CVA tenderness (R), FULL ROM, muscle spasm, paraspinal tenderness, rash noted, tenderness, vertebral tenderness - Neurological Exam Neurological exam: Alert, CN II-XII Intact, Oriented x3, Reflexes Normal - Psychiatric Exam Psychiatric exam: Depressed - Skin Skin Exam: Dry Results - Vital Signs Recent Vital Signs: Last Vital Signs Temp 97.6 F 07/06/18 11:57 Pulse 76 07/06/18 11:57 Resp 18 07/06/18 11:57 BP 126/70 11/28/18 11:57 Pulse Ox 99 07/06/18 11:57 - Labs Result Diagrams: 07/06/18 04:25 07/06/18 04:25 Labs: Laboratory Results - last 24 hr 07/05/18 07/05/18 07/06/18 18:03 20:30 04:25 WBC 17.8 H RBC 3.04 L Hgb 9.2 L Hct 28.4 L MCV 93.5 MCH 30.5 MCHC 32.6 L RDW 14.3 Plt Count 165 MPV 7.7 Neut % (Auto) 80.2 H Lymph % (Auto) 8.0 L Logan % (Auto) 11.3 H Eos % (Auto) 0.1 Baso % (Auto) 0.4 Neut # (Auto) 14.3 H Lymph # (Auto) 1.4 Logan # (Auto) 2.0 H Eos # (Auto) 0.0 Baso # (Auto) 0.1 pCO2 30 L pO2 65 L HCO3 23.2 ABG pH 7.45 ABG Total CO2 21.8 L ABG O2 Saturation 95.9 ABG O2 Content 17.2 ABG Base Excess -2.1 L ABG Hemoglobin 13.2 ABG Carboxyhemoglobin 1.9 H POC ABG HHb (Measured) 4.0 ABG Methemoglobin 1.5 ABG O2 Capacity 17.9 Mick Test Yes A-a O2 Difference 97.0 Hgb O2 Saturation 92.6 L FiO2 28.0 Sodium Potassium Chloride Carbon Dioxide Anion Gap BUN Creatinine Est GFR ( Amer) Est GFR (Non-Af Amer) Random Glucose Calcium Iron Ferritin Vitamin B12 Vancomycin Trough 19.8 H 07/06/18 07/06/18 04:25 04:25 WBC RBC Hgb Hct MCV MCH MCHC RDW Plt Count MPV Neut % (Auto) Lymph % (Auto) Logan % (Auto) Eos % (Auto) Baso % (Auto) Neut # (Auto) Lymph # (Auto) Logan # (Auto) Eos # (Auto) Baso # (Auto) pCO2 pO2 HCO3 ABG pH ABG Total CO2 ABG O2 Saturation ABG O2 Content ABG Base Excess ABG Hemoglobin ABG Carboxyhemoglobin POC ABG HHb (Measured) ABG Methemoglobin ABG O2 Capacity Mick Test A-a O2 Difference Hgb O2 Saturation FiO2 Sodium 136 Potassium 3.8 Chloride 107 Carbon Dioxide 22 Anion Gap 11 BUN 17 Creatinine 1.2 Est GFR ( Amer) > 60 Est GFR (Non-Af Amer) 58 Random Glucose 93 Calcium 8.0 L Iron 11 L Ferritin 190.0 Vitamin B12 > 1000 H Vancomycin Trough Assessment & Plan (1) ESBL (extended spectrum beta-lactamase) producing bacteria infection Status: Acute (2) Pneumonia Status: Acute (3) UTI (urinary tract infection) Status: Acute - Assessment and Plan (Free Text) Assessment: started Merrem Vanco may be d/c'd if no MRSA fouind on sputum culture will need Bx
[2018-07-06] MEDS: Albuterol-Ipratrop 3 mg / 0.5 (3 ml) UD INH SCH ×3 (12:48→19:36)
[2018-07-06] MEDS: Meropenem 1 GM in Sodium Chloride 0.9% 100 ML IVPB SCH ×2 (13:25→17:32)
[2018-07-07] MEDS: Meropenem 1 GM in Sodium Chloride 0.9% 100 ML IVPB SCH ×3 (00:08→17:14)
[2018-07-07 06:09] LABS: HEMOGLOBIN 9.5 g/dL (12.0-18.0); MEAN CELL VOLUME 92.9 fl (80.0-94.0); MEAN CORPUSCULAR HEMOGLOBIN 30.7 pg (27.0-31.0); MEAN CORPUSCULAR HGB CONC 33.1 g/dL (33.0-37.0); RBC 3.1 Mil/uL (4.40-5.90); RED CELL DISTRIBUTION WIDTH 14.4 % (11.5-14.5); WHITE BLOOD COUNT 9.9 K/uL (4.8-10.8)
[2018-07-07 06:27] LABS: BLOOD UREA NITROGEN 11 mg/dl (9-20); CALCIUM 8.6 mg/dL (8.4-10.2); GFR NON-AFRICAN AMERICAN > 60
[2018-07-07] MEDS ORDERED: Sodium Chloride 3% for Inhalation 4 ML VIAL.NEB IH PRN (06:44)
[2018-07-07] MEDS: Albuterol-Ipratrop 3 mg / 0.5 (3 ml) UD INH SCH ×4 (07:30→19:34)
--- NOTE | 2018-07-07 10:43 | CP.PCM.PN ---
<Isaiah Banegas - Last Filed: 07/07/18 10:40> Subjective - Date & Time of Evaluation Date of Evaluation: 07/07/18 Time of Evaluation: 08:00 - Subjective Subjective: Pt was seen and examined this morning with Dr. Caputo at the bedside. Contact precautions in place. Pt reports that he is feeling better. Denies dyspnea or cough. Has been eating (on dysphagia diet), Urinating, stooling, and ambulating. Completed repeat Cxray this morning. Blood cultures ordered but not collected. Spoke with RN to collect cultures. Objective - Vital Signs/Intake and Output Vital Signs (last 24 hours): Temp Pulse Resp BP Pulse Ox 97.8 F 81 20 136/76 98 07/07/18 08:10 07/07/18 08:10 07/07/18 08:10 07/07/18 08:10 07/07/18 08:10 Intake and Output: 07/07/18 07/07/18 06:59 18:59 Intake Total 1750 Balance 1750 - Medications Medications: Current Medications Acetaminophen (Tylenol 325mg Tab) 650 mg PO Q6 PRN PRN Reason: Fever >100.4 F Acetaminophen (Tylenol 325mg Tab) 650 mg PO Q6 PRN PRN Reason: Pain, severe (8-10) Last Admin: 07/06/18 15:42 Dose: 650 mg Albuterol/Ipratropium (Duoneb 3 Mg/0.5 Mg (3 Ml) Ud) 3 ml INH RQID NIKOLAS Last Admin: 07/07/18 07:30 Dose: 3 ml Enoxaparin Sodium (Lovenox) 40 mg SC DAILY NIKOLAS; Protocol Last Admin: 07/06/18 09:02 Dose: 40 mg Meropenem 1 gm/ Sodium (Chloride) 100 mls @ 100 mls/hr IVPB Q8 NIKOLAS; Protocol Last Admin: 07/07/18 00:08 Dose: 100 mls/hr Vancomycin HCl 1 gm/ Sodium (Chloride) 250 mls @ 166.667 mls/hr IVPB DAILY NIKOLAS; Protocol Pantoprazole Sodium (Protonix Ec Tab) 40 mg PO DAILY NIKOLAS Last Admin: 07/06/18 09:02 Dose: 40 mg - Labs Labs: 07/07/18 04:25 07/07/18 04:25 - Constitutional Appears: Non-toxic, No Acute Distress - Head Exam Head Exam: NORMAL INSPECTION - Eye Exam Eye Exam: Normal appearance - ENT Exam ENT Exam: Mucous Membranes Moist - Neck Exam Neck Exam: Full ROM - Respiratory Exam Respiratory Exam: Clear to Ausculation Bilateral. absent: Accessory Muscle Use, Rales, Wheezes - Cardiovascular Exam Cardiovascular Exam: REGULAR RHYTHM, +S1, +S2. absent: Murmur - GI/Abdominal Exam GI & Abdominal Exam: Soft, Normal Bowel Sounds. absent: Tenderness - Extremities Exam Extremities Exam: Normal Inspection. absent: Pedal Edema - Neurological Exam Neurological Exam: Alert, Awake, Oriented x3 - Psychiatric Exam Psychiatric exam: Normal Affect - Skin Skin Exam: Normal Color Assessment and Plan - Assessment and Plan (Free Text) Assessment: Assessment: Pt is a 78 y/o male with no known medical problems admitted to [facility] for Urosepsis w/ elevated lactic acid 4.4. 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 Currently receiving IV Vanco and Zosyn, pending Ucx. Dyspnea on exertion noted on mutliple occasions during admission which has improved with albuterol treatments. Needs picc line pending normal Blood culture. Bacteremia -Blood Cx and Ucx (07/04): +ESBL E.Coli. -Blood Cx(07/05): +ESBL E.Coli. -Blood Cx (07/07): pending -Afebrile since 07/04, Leukocytosis resolved -C/W Meropenem 1gm q8 IVID on board, Dr. Grant, approved antibiotic regimen -C/W Vancomysin until sputum Cx negative for MRSA as advised by Dr. Grant. Trough high this morning, will reduce dosage to 1gm daily. -Repeat Blood Cultures ordered; will get picc once negative -Tylenol prn for fevers -Continue contact precautions Dyspnea -Resolved -Cxray (07/06): Possible R. Infiltrate. Repeat Cxray today--pending results. Need to rule out pneumonia though patient does not have fever/leukocytosis/cough -Likely exertional; exacerbated during PT yesterday -Pt has long smoking hx ([address] p[address] reported COPD at lung apices suggesting this is likely a component of obstructive lung disease -C/W Albuterol nebulizer QID Tongue Mass -No acute intervention required; pt needs f/u with ENT for biopsy and subsequently Oncology -Discuss CT findings with patient and concern for malignancy. Pt is aware and was told in previous institution. -Pt strongly encouraged to f/u with ENT and Oncology for biopsy to rule out m alignancy Dysphagia -Dysphagia diet -Swallow screen and evaluation: pureed thin liquids -Aspiration precautions DVT ppx -Lovenox 40mg sq PT -recommended subacute rehab vs home with services for gait training Stable Full Code Discussed case with Dr. Caputo <Comfort Caputo - Last Filed: 07/07/18 14:52> Objective - Vital Signs/Intake and Output Vital Signs (last 24 hours): Temp Pulse Resp BP Pulse Ox 98 F 76 20 142/70 97 07/07/18 12:15 07/07/18 12:15 07/07/18 12:15 07/07/18 12:15 07/07/18 12:15 Intake and Output: 07/07/18 07/07/18 06:59 18:59 Intake Total 1750 Balance 1750 - Medications Medications: Current Medications Acetaminophen (Tylenol 325mg Tab) 650 mg PO Q6 PRN PRN Reason: Fever >100.4 F Acetaminophen (Tylenol 325mg Tab) 650 mg PO Q6 PRN PRN Reason: Pain, severe (8-10) Last Admin: 07/07/18 10:48 Dose: 650 mg Albuterol/Ipratropium (Duoneb 3 Mg/0.5 Mg (3 Ml) Ud) 3 ml INH RQID NIKOLAS Last Admin: 07/07/18 11:03 Dose: 3 ml Enoxaparin Sodium (Lovenox) 40 mg SC DAILY NIKOLAS; Protocol Last Admin: 07/07/18 10:46 Dose: 40 mg Meropenem 1 gm/ Sodium (Chloride) 100 mls @ 100 mls/hr IVPB Q8 NIKOLAS; Protocol Last Admin: 07/07/18 12:07 Dose: 100 mls/hr Vancomycin HCl 1 gm/ Sodium (Chloride) 250 mls @ 166.667 mls/hr IVPB DAILY NIKOLAS; Protocol Last Admin: 07/07/18 10:51 Dose: 166.667 mls/hr Pantoprazole Sodium (Protonix Ec Tab) 40 mg PO DAILY NIKOLAS Last Admin: 07/07/18 10:48 Dose: 40 mg - Labs Labs: 07/07/18 04:25 07/07/18 04:25 Attending/Attestation - Attestation I have personally seen and examined this patient.: Yes I have fully participated in the care of the patient.: Yes I have reviewed all pertinent clinical information, including history, physical exam and plan: Yes Notes (Text): Sepsis due to ESBL E coli UTI with Bacteremia - cont Meropenem to complete 2 wks tx - rpt blood c/s - if negative Bld c/s , will put in PICC line and d/c pt on IV Ertapenem 1 gram daily x 10 more days as outpt ( SDS), SW and Case Mgt informed of plan for approval of IV abx by Admin COPD , mild exacerbation resolved with Duoneb Tongue Mass - daughter ent to [facility] today to apply for [facility] as pt has a previous referral for Biopsy at that institution. Stressed importance to r/o CA
[2018-07-07] MEDS: Enoxaparin 40 mg Syringe SC SCH (10:46)
[2018-07-07] MEDS: Pantoprazole 40 mg EC Tab PO SCH (10:48)
--- NOTE | 2018-07-07 10:53 | RAD ---
Date of service: 07/07/2018 HISTORY: ? Pneumonia COMPARISON: 07/06/2018 TECHNIQUE: Chest PA and lateral FINDINGS: LUNGS: Resolved right basilar opacity. No new infiltrate. PLEURA: Very small bilateral pleural effusion. No pneumothorax. CARDIOVASCULAR: No aortic atherosclerotic calcification present. Normal cardiac size. No pulmonary vascular congestion. OSSEOUS STRUCTURES: No significant abnormalities. VISUALIZED UPPER ABDOMEN: Normal. OTHER FINDINGS: None. IMPRESSION: Resolved right basilar opacity with very small bilateral pleural effusion.
[2018-07-07] MEDS ORDERED: Potassium Chloride 20 mEq/15 ml LIQ UD PO ONE (16:23)
--- NOTE | 2018-07-07 18:23 | CP.PCM.PN ---
Subjective - Date & Time of Evaluation Date of Evaluation: 07/07/18 Time of Evaluation: 10:00 - Subjective Subjective: improving less congested Objective - Vital Signs/Intake and Output Vital Signs (last 24 hours): Temp Pulse Resp BP Pulse Ox 98.0 F 76 18 130/66 95 07/07/18 15:45 07/07/18 15:45 07/07/18 15:45 07/07/18 15:45 07/07/18 15:45 Intake and Output: 07/07/18 07/07/18 06:59 18:59 Intake Total 1750 Balance 1750 - Medications Medications: Current Medications Acetaminophen (Tylenol 325mg Tab) 650 mg PO Q6 PRN PRN Reason: Fever >100.4 F Acetaminophen (Tylenol 325mg Tab) 650 mg PO Q6 PRN PRN Reason: Pain, severe (8-10) Last Admin: 07/07/18 10:48 Dose: 650 mg Albuterol/Ipratropium (Duoneb 3 Mg/0.5 Mg (3 Ml) Ud) 3 ml INH RQID NIKOLAS Last Admin: 07/07/18 15:49 Dose: 3 ml Enoxaparin Sodium (Lovenox) 40 mg SC DAILY NIKOLAS; Protocol Last Admin: 07/07/18 10:46 Dose: 40 mg Meropenem 1 gm/ Sodium (Chloride) 100 mls @ 100 mls/hr IVPB Q8 NIKOLAS; Protocol Last Admin: 07/07/18 17:14 Dose: 100 mls/hr Vancomycin HCl 1 gm/ Sodium (Chloride) 250 mls @ 166.667 mls/hr IVPB DAILY NIKOLAS; Protocol Last Admin: 07/07/18 10:51 Dose: 166.667 mls/hr Pantoprazole Sodium (Protonix Ec Tab) 40 mg PO DAILY NIKOLAS Last Admin: 07/07/18 10:48 Dose: 40 mg - Labs Labs: 07/07/18 04:25 07/07/18 04:25 - Constitutional Appears: Non-toxic, Chronically Ill - Head Exam Head Exam: NORMOCEPHALIC - Eye Exam Eye Exam: absent: Scleral icterus - ENT Exam ENT Exam: Mucous Membranes Dry. absent: Normal Oropharynx Additional comments: + tongue lesion - Neck Exam Neck Exam: absent: Lymphadenopathy - Respiratory Exam Respiratory Exam: Decreased Breath Sounds - Cardiovascular Exam Cardiovascular Exam: REGULAR RHYTHM - GI/Abdominal Exam GI & Abdominal Exam: Distended - Rectal Exam Rectal Exam: Deferred - Exam Exam: NORMAL INSPECTION - Extremities Exam Extremities Exam: absent: Pedal Edema - Back Exam Back Exam: absent: CVA tenderness (L), CVA tenderness (R) - Neurological Exam Neurological Exam: Alert, Awake, Oriented x3 - Psychiatric Exam Psychiatric exam: Depressed - Skin Skin Exam: Dry Assessment and Plan (1) ESBL (extended spectrum beta-lactamase) producing bacteria infection Status: Acute (2) Pneumonia Status: Acute (3) UTI (urinary tract infection) Status: Acute (4) Lesion of tongue Status: Acute - Assessment and Plan (Free Text) Assessment: possible aspiration secondary to tongue mass ESBL uti / sepsis / bacteremia consider Head and Neck Surgery eval or OMFS surgery for Bx consider eval cont IV antibiotics for min 14 days ( ESBL sepsis/ bacteremia)
[2018-07-08] MEDS: Meropenem 1 GM in Sodium Chloride 0.9% 100 ML IVPB SCH ×2 (01:05→10:48)
[2018-07-08 05:27] LABS: HEMOGLOBIN 9.8 g/dL (12.0-18.0); MEAN CELL VOLUME 91.6 fl (80.0-94.0); MEAN CORPUSCULAR HEMOGLOBIN 30.9 pg (27.0-31.0); MEAN CORPUSCULAR HGB CONC 33.7 g/dL (33.0-37.0); RBC 3.17 Mil/uL (4.40-5.90); RED CELL DISTRIBUTION WIDTH 14.5 % (11.5-14.5)
[2018-07-08 05:30] LABS: INR 1.2; PROTHROMBIN TIME 13.6 Seconds (9.8-13.1)
[2018-07-08 05:33] LABS: PARTIAL THROMBOPLASTIN TIME 28.5 Seconds (25.6-37.1)
[2018-07-08 05:49] LABS: BLOOD UREA NITROGEN 11 mg/dl (9-20); CALCIUM 8.8 mg/dL (8.4-10.2); GFR NON-AFRICAN AMERICAN > 60
[2018-07-08 07:39] VITALS: RESP 20; TEMP 97.7
[2018-07-08] MEDS: Albuterol-Ipratrop 3 mg / 0.5 (3 ml) UD INH SCH ×2 (07:40→11:07)
[2018-07-08] MEDS: Enoxaparin 40 mg Syringe SC SCH (10:48)
[2018-07-08] MEDS: Pantoprazole 40 mg EC Tab PO SCH (10:49)
[2018-07-08 11:50] VITALS: BP 141/83; PULSE 77; O2SAT 99
--- NOTE | 2018-07-08 13:07 | CP.PCM.DIS ---
Provider - Provider Date of Admission: 07/04/18 14:58 Attending physician: Nando Hernández MD Consults: 07/05/18 12:59 Infectious Disease Consult Routine Comment: Consulting Provider: Angel Grant Consulting Physician: Angel Grant Reason for Consult: Bacteremia Time Spent in preparation of Discharge (in minutes): 35 Diagnosis - Discharge Diagnosis (1) ESBL (extended spectrum beta-lactamase) producing bacteria infection Status: Acute (2) Lesion of tongue Status: Acute (3) Sepsis Status: Resolved (4) UTI (urinary tract infection) Status: Acute (5) Bacteremia Status: Acute Hospital Course - Lab Results Lab Results: Micro Results 07/05/18 15:06 Blood-Venous Blood Culture - Final Escherichia Coli 07/05/18 15:06 Blood-Venous Gram Stain - Final 07/06/18 10:50 Blood-Venous Blood Culture - Preliminary NO GROWTH AFTER 48 HOURS 07/06/18 10:50 Blood-Venous Blood Culture - Preliminary NO GROWTH AFTER 48 HOURS 07/07/18 04:25 Blood Blood Culture - Preliminary NO GROWTH AFTER 24 HOURS 07/07/18 04:25 Blood Blood Culture - Preliminary NO GROWTH AFTER 24 HOURS 07/07/18 16:56 Sputum Gram Stain - Final 07/05/18 15:06 Blood-Venous Blood Culture - Preliminary NO GROWTH AFTER 48 HOURS 07/04/18 13:10 Blood-Venous Blood Culture - Preliminary NO GROWTH AFTER 3 DAYS 07/04/18 14:32 Blood-Venous Blood Culture - Final Escherichia Coli 07/04/18 14:32 Blood-Venous Gram Stain - Final 07/04/18 14:32 Urine,Clean Catch Urine Culture - Final Escherichia Coli Most Recent Lab Values WBC 9.0 K/uL (4.8-10.8) 07/08/18 04:30 RBC 3.17 Mil/uL (4.40-5.90) L 07/08/18 04:30 Hgb 9.8 g/dL (12.0-18.0) L 07/08/18 04:30 Hct 29.1 % (35.0-51.0) L 07/08/18 04:30 MCV 91.6 fl (80.0-94.0) 07/08/18 04:30 MCH 30.9 pg (27.0-31.0) 07/08/18 04:30 MCHC 33.7 g/dL (33.0-37.0) 07/08/18 04:30 RDW 14.5 % (11.5-14.5) 07/08/18 04:30 Plt Count 184 K/uL (130-400) 07/08/18 04:30 MPV 7.7 fl (7.2-11.7) 07/06/18 04:25 Neut % (Auto) 80.2 % (50.0-75.0) H 07/06/18 04:25 Lymph % (Auto) 8.0 % (20.0-40.0) L 07/06/18 04:25 Pepin % (Auto) 11.3 % (0.0-10.0) H 07/06/18 04:25 Eos % (Auto) 0.1 % (0.0-4.0) 07/06/18 04:25 Baso % (Auto) 0.4 % (0.0-2.0) 07/06/18 04:25 Neut # (Auto) 14.3 K/uL (1.8-7.0) H 07/06/18 04:25 Lymph # (Auto) 1.4 K/uL (1.0-4.3) 07/06/18 04:25 Pepin # (Auto) 2.0 K/uL (0.0-0.8) H 07/06/18 04:25 Eos # (Auto) 0.0 K/uL (0.0-0.7) 07/06/18 04:25 Baso # (Auto) 0.1 K/uL (0.0-0.2) 07/06/18 04:25 Neutrophils % (Manual) 85 % (42-75) H 07/04/18 13:10 Band Neutrophils % 3 % (0-2) H 07/04/18 13:10 Lymphocytes % (Manual) 4 % (20-50) L 07/04/18 13:10 Monocytes % (Manual) 8 % (0-10) 07/04/18 13:10 Platelet Estimate Normal (NORMAL) 07/04/18 13:10 Plt Clumps, EDTA Present 07/04/18 13:10 Hypochromasia (manual) Slight 07/04/18 13:10 PT 13.6 Seconds (9.8-13.1) H 07/08/18 04:30 INR 1.2 07/08/18 04:30 APTT 28.5 Seconds (25.6-37.1) 07/08/18 04:30 pCO2 30 mm/Hg (35-45) L 07/05/18 18:03 pO2 65 mm/Hg (80-100) L 07/05/18 18:03 HCO3 23.2 mmol/L (21-28) 07/05/18 18:03 ABG pH 7.45 (7.35-7.45) 07/05/18 18:03 ABG Total CO2 21.8 mmol/L (22-28) L 07/05/18 18:03 ABG O2 Saturation 95.9 % (95-98) 07/05/18 18:03 ABG O2 Content 17.2 ML/dL (15-23) 07/05/18 18:03 ABG Base Excess -2.1 mmol/L (-2.0-3.0) L 07/05/18 18:03 ABG Hemoglobin 13.2 g/dL (11.7-17.4) 07/05/18 18:03 ABG Carboxyhemoglobin 1.9 % (0.5-1.5) H 07/05/18 18:03 POC ABG HHb (Measured) 4.0 % (0.0-5.0) 07/05/18 18:03 ABG Methemoglobin 1.5 % (0.0-3.0) 07/05/18 18:03 ABG O2 Capacity 17.9 mL/dL (16-24) 07/05/18 18:03 Mick Test Yes 07/05/18 18:03 VBG pH 7.45 (7.32-7.43) H 07/04/18 16:30 VBG pCO2 36 mmHg (40-60) L 07/04/18 16:30 VBG HCO3 25.2 mmol/L 07/04/18 16:30 VBG Total CO2 26.1 mmol/L (22-28) 07/04/18 16:30 VBG O2 Sat (Calc) 78.0 % (40-65) H 07/04/18 16:30 VBG Base Excess 1.3 mmol/L (0.0-2.0) 07/04/18 16:30 VBG Potassium 4.4 mmol/L (3.6-5.2) 07/04/18 16:30 A-a O2 Difference 97.0 mm/Hg 07/05/18 18:03 Hgb O2 Saturation 92.6 % (95.0-98.0) L 07/05/18 18:03 Sodium 130.0 mmol/L (132-148) L 07/04/18 16:30 Chloride 101.0 mmol/L (98-107) 07/04/18 16:30 Glucose 126 mg/dL (75-110) H 07/04/18 16:30 Lactate 1.2 mmol/L (0.7-2.1) 07/04/18 16:30 FiO2 28.0 % 07/05/18 18:03 Blood Gas Comments Lac=4.4 07/04/18 13:18 Crit Value Called To kalani Phillips 07/04/18 13:18 Crit Value Called By 22 07/04/18 13:18 Crit Value Read Back Y 07/04/18 13:18 Blood Gas Notified Time 1325 07/04/18 13:18 Sodium 136 mmol/l (132-148) 07/08/18 04:30 Potassium 4.0 MMOL/L (3.6-5.0) 07/08/18 04:30 Chloride 102 mmol/L (98-107) 07/08/18 04:30 Carbon Dioxide 28 mmol/L (22-30) 07/08/18 04:30 Anion Gap 10 (10-20) 07/08/18 04:30 BUN 11 mg/dl (9-20) 07/08/18 04:30 Creatinine 1.0 mg/dl (0.8-1.5) 07/08/18 04:30 Est GFR ( Amer) > 60 07/08/18 04:30 Est GFR (Non-Af Amer) > 60 07/08/18 04:30 Random Glucose 99 mg/dL (75-110) 07/08/18 04:30 Lactic Acid 1.6 MMOL/L (0.7-2.1) 07/04/18 21:09 Calcium 8.8 mg/dL (8.4-10.2) 07/08/18 04:30 Iron 11 ug/dL (49-181) L 07/06/18 04:25 Ferritin 190.0 ng/Ml (17.9-464) 07/06/18 04:25 Total Bilirubin 0.9 mg/dl (0.2-1.3) 07/04/18 13:10 AST 38 U/L (17-59) 07/04/18 13:10 ALT 32 U/L (21-72) 07/04/18 13:10 Alkaline Phosphatase 118 U/L (38-126) 07/04/18 13:10 Total Protein 7.4 G/DL (6.3-8.2) 07/04/18 13:10 Albumin 4.0 g/dL (3.5-5.0) 07/04/18 13:10 Globulin 3.5 gm/dL (2.2-3.9) 07/04/18 13:10 Albumin/Globulin Ratio 1.1 (1.0-2.1) 07/04/18 13:10 Prostate Specific Ag 0.605 ng/ML (0.00-4.0) 07/06/18 04:25 Vitamin B12 > 1000 pg/mL (239-931) H 07/06/18 04:25 Venous Blood Potassium 4.4 mmol/L (3.6-5.2) 07/04/18 16:30 Urine Color Sirisha (YELLOW) 07/04/18 14:32 Urine Clarity Cloudy (Clear) 07/04/18 14:32 Urine pH 7.0 (5.0-8.0) 07/04/18 14:32 Ur Specific Epes 1.016 (1.003-1.030) 07/04/18 14:32 Urine Protein 100 mg/dL (NEGATIVE) 07/04/18 14:32 Urine Glucose (UA) Neg mg/dL (Normal) 07/04/18 14:32 Urine Ketones Negative mg/dL (NEGATIVE) 07/04/18 14:32 Urine Blood Small (NEGATIVE) 07/04/18 14:32 Urine Nitrate Positive (NEGATIVE) H 07/04/18 14:32 Urine Bilirubin Negative (NEGATIVE) 07/04/18 14:32 Urine Urobilinogen 0.2-1.0 mg/dL (0.2-1.0) 07/04/18 14:32 Ur Leukocyte Esterase Mod Marvin/uL (Negative) 07/04/18 14:32 Urine RBC (Auto) 9 /hpf (0-3) H 07/04/18 14:32 Urine Microscopic WBC 20 /hpf (0-5) H 07/04/18 14:32 Ur Squamous Epith Cells < 1 /hpf (0-5) 07/04/18 14:32 Urine Bacteria Rare (<OCC) 07/04/18 14:32 Vancomycin Trough 17.4 ug/mL (5.0-10.0) H 07/07/18 04:25 - Hospital Course Hospital Course: Pt is a 78 y/o male with no known medical problems admitted to [facility] for Sepsis (with Lactic acid 4.4) secondary to UTI. He was started on Vancomysin and Zosyn. His Ucx and Bcx came back positive for ESBL E.Coli and he was started on Meropenem (Day 07/06). Infectious Disease was consulted, Dr. Grant who approved this regimen. Repeat blood culture from 07/05 showed no growth (final). Pt also had complaints of chronic tongue/mouth pain and was found on Neck CT to have ~4cm anterior tongue mass with lymphadenopathy concerning for malignancy. He was counseled extensively along with family with regards to following up closely for this tongue mass as it is concerning for malignancy. Pt and family state they were given a referral to [facility] at a different facility and they are in the rpocess of setting up an appointment. Pt had a picc line inserted on 07/08 and was stable fro discharge with instructions to return daily for IV Ertapenem for 12 days. Discharge Exam - Head Exam Head Exam: ATRAUMATIC, NORMOCEPHALIC - Eye Exam Eye Exam: Normal appearance - ENT Exam ENT Exam: Mucous Membranes Moist - Respiratory Exam Respiratory Exam: Clear to PA & Lateral. absent: Rales, Wheezes - Cardiovascular Exam Cardiovascular Exam: REGULAR RHYTHM, +S1, +S2 - GI/Abdominal Exam GI & Abdominal Exam: Normal Bowel Sounds, Soft. absent: Tenderness - Extremities Exam Extremities exam: normal capillary refill, pedal pulses present Additional comments: Right upper arm peripheral line in place- no swelling, redness, bleeding. Good radial pulse - Neurological Exam Neurological exam: Alert, Oriented x3 - Psychiatric Exam Psychiatric exam: Normal Affect - Skin Skin Exam: Normal Color Discharge Plan - Follow Up Plan Condition: FAIR Disposition: HOME/ ROUTINE Instructions: Sepsis in Adults, Urinary Tract Infection, Adult (DC), Multidrug Resistant Organisms (DC), Sepsis (DC), Sepsis (GEN) Additional Instructions: [facility] [phone] para evaluacion de la masa de la lengua Referrals: [facility] [place] [Outside]
--- NOTE | 2018-07-08 13:58 | CP.PCM.PN ---
Subjective - Date & Time of Evaluation Date of Evaluation: 07/08/18 Time of Evaluation: 08:00 - Subjective Subjective: less congested for PICC line ok to d/c Vanco Objective - Vital Signs/Intake and Output Vital Signs (last 24 hours): Temp Pulse Resp BP Pulse Ox 97.7 F 77 20 141/83 99 07/08/18 11:49 07/08/18 11:49 07/08/18 11:49 07/08/18 11:49 07/08/18 11:49 - Medications Medications: Current Medications Acetaminophen (Tylenol 325mg Tab) 650 mg PO Q6 PRN PRN Reason: Fever >100.4 F Acetaminophen (Tylenol 325mg Tab) 650 mg PO Q6 PRN PRN Reason: Pain, severe (8-10) Last Admin: 07/07/18 10:48 Dose: 650 mg Albuterol/Ipratropium (Duoneb 3 Mg/0.5 Mg (3 Ml) Ud) 3 ml INH RQID NIKOLAS Last Admin: 07/08/18 11:07 Dose: 3 ml Enoxaparin Sodium (Lovenox) 40 mg SC DAILY NIKOLAS; Protocol Last Admin: 07/08/18 10:48 Dose: 40 mg Meropenem 1 gm/ Sodium (Chloride) 100 mls @ 100 mls/hr IVPB Q8 NIKOLAS; Protocol Last Admin: 07/08/18 10:48 Dose: 100 mls/hr Vancomycin HCl 1 gm/ Sodium (Chloride) 250 mls @ 166.667 mls/hr IVPB DAILY NIKOLAS; Protocol Last Admin: 07/08/18 12:30 Dose: 166.667 mls/hr Pantoprazole Sodium (Protonix Ec Tab) 40 mg PO DAILY NIKOLAS Last Admin: 07/08/18 10:49 Dose: 40 mg - Labs Labs: 07/08/18 04:30 07/08/18 04:30 PT 13.6 Seconds (9.8-13.1) H 07/08/18 04:30 INR 1.2 07/08/18 04:30 APTT 28.5 Seconds (25.6-37.1) 07/08/18 04:30 - Constitutional Appears: Non-toxic, Chronically Ill - Head Exam Head Exam: NORMOCEPHALIC - Eye Exam Eye Exam: absent: Scleral icterus - ENT Exam ENT Exam: Mucous Membranes Dry - Neck Exam Neck Exam: absent: Lymphadenopathy - Respiratory Exam Respiratory Exam: Decreased Breath Sounds - Cardiovascular Exam Cardiovascular Exam: REGULAR RHYTHM - GI/Abdominal Exam GI & Abdominal Exam: Distended Assessment and Plan (1) ESBL (extended spectrum beta-lactamase) producing bacteria infection Status: Acute (2) Pneumonia Status: Acute (3) UTI (urinary tract infection) Status: Acute (4) Lesion of tongue Status: Chronic - Assessment and Plan (Free Text) Assessment: consider Bx lesion cont iv antibiotics for 14 days min
--- NOTE | 2018-07-08 14:24 | RAD ---
Date of service: 07/08/2018 HISTORY: PICC Insertion COMPARISON: July 07, 2018. FINDINGS: LUNGS: Improved aeration of the lungs. PLEURA: Stable small bilateral pleural effusions. CARDIOVASCULAR: No atherosclerotic calcification present Normal. OSSEOUS STRUCTURES: No significant abnormalities. VISUALIZED UPPER ABDOMEN: Normal. OTHER FINDINGS: PICC line in satisfactory position inserted via right upper extremity approach. The tip is in the SVC. IMPRESSION: Satisfactory position of recently placed PICC line. No pneumothorax identified.
== END 2018-07-08 14:34 | disposition home or self-care (01) | DRG 720 ==
LOC: H.ER 11:21 → H.ERHOLD 14:58 → H.TEL 18:50
DX: A41.51 Sepsis due to Escherichia coli [E. coli] (principal); J18.9 Pneumonia, unspecified organism; J44.0 Chronic obstructive pulmonary disease with (acute) lower respiratory infection; N39.0 Urinary tract infection, site not specified; J44.1 Chronic obstructive pulmonary disease with (acute) exacerbation; R13.10 Dysphagia, unspecified; G89.29 Other chronic pain; D64.9 Anemia, unspecified; Z16.12 Extended spectrum beta lactamase (ESBL) resistance; K14.6 Glossodynia; Z23 Encounter for immunization; Z87.891 Personal history of nicotine dependence